=== PATIENT | male | born 1950 | race Caucasian/White ===

== ENCOUNTER 2021-03-26 09:43 | Emergency (ER) | payer MEDICARE, BC ==
[2021-03-26] MEDS ORDERED: ASPIRIN CHEW 81 MG TABLET PO STA (09:59)
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
[2021-03-26 10:06] LABS: BASOPHILS % (AUTO) 0.6 %; EOSINOPHILS % (AUTO) 0.8 %; HCT - HEMATOCRIT 41.3 % (42.0-52.0); HGB - HEMOGLOBIN 13.5 g/dL (14.0-18.0); LYMPHOCYTES # (AUTO) 1.7 10^3/uL (1.5-3.5); LYMPHOCYTES % (AUTO) 35.8 %; MEAN CORPUSCULAR HEMOGLOBIN 31.9 pg (27.0-31.0); MEAN CORPUSCULAR HGB CONC 32.7 g/dL (32.0-36.0); MEAN CORPUSCULAR VOLUME 97.6 fL (80.0-94.0); MEAN PLATELET VOLUME 10.6 fL (7.4-11.4); MONOCYTES # (AUTO) 0.4 10^3/uL (0.0-1.0); MONOCYTES % (AUTO) 8.5 %; NEUTROPHILS # (AUTO) 2.6 10^3/uL (1.5-6.6); NEUTROPHILS % (AUTO) 54.1 %; PLT - PLATELET COUNT 178 10^3/uL (130-450); RED BLOOD COUNT 4.23 10^6/uL (4.70-6.10); RED CELL DISTRIBUTION WIDTH 12.5 % (12.0-15.0); WHITE BLOOD COUNT 4.8 x10^3/uL (4.8-10.8)
[2021-03-26 10:23] LABS: ALBUMIN 4.4 g/dL (3.2-5.5); ALBUMIN/GLOBULIN RATIO 1.5 (1.0-2.2); BILIRUBIN,TOTAL 0.7 mg/dL (0.2-1.0); CALCIUM 9.4 mg/dL (8.5-10.3); CREATININE 0.9 mg/dL (0.6-1.2); POTASSIUM 3.7 mmol/L (3.5-5.0); TOTAL PROTEIN 7.3 g/dL (6.7-8.2)
--- NOTE | 2021-03-26 11:17 | XRAY Report ---
PROCEDURE: Chest 1 View X-Ray INDICATIONS: Chest Pain COMMENTS: SX X 2 DAYS. CENTER CHEST PAIN. PRIORS: NONE TECHNIQUE: One view of the chest was acquired. COMPARISON: None FINDINGS: Surgical changes and devices: Status post median sternotomy Lungs and pleura: No pleural effusions or pneumothorax. Lungs are clear. Mediastinum: Mediastinal contours appear normal. Heart size is normal. Bones and chest wall: No suspicious bony lesions. Overlying soft tissues appear unremarkable. IMPRESSION: No acute cardiopulmonary abnormality. Reviewed by: Dirk Caldera on 03/26/2021 10:15 AM [facility] Approved by: Dirk Caldera on 03/26/2021 10:15 AM [facility] Station ID: [id number]
[2021-03-26 13:09] VITALS: BP 128/84
== END 2021-03-26 13:14 | disposition home or self-care (01) ==
LOC: ED 09:43
DX: R07.2 Precordial pain (principal); R94.31 Abnormal electrocardiogram [ECG] [EKG]; Z95.1 Presence of aortocoronary bypass graft; Z79.82 Long term (current) use of aspirin
CPT/HCPCS: 36415; 71045; 80053; 83690; 84484; 85025; 93005; 99282; 99284; A9270

== ENCOUNTER 2021-08-22 18:40 | Outpatient (CLI) | payer MEDICARE, BC | END 2021-08-22 23:59 | disposition home or self-care (01) | LOC: LAB 18:40 | PROVIDERS: ATTEND Physician Assistant Medical | DX: J02.9 Acute pharyngitis, unspecified (principal); Z20.822 Contact with and (suspected) exposure to COVID-19 | CPT/HCPCS: 87070; U0004 ==

== ENCOUNTER 2021-10-20 08:36 | Outpatient (CLI) | payer MEDICARE, BC ==
[2021-10-20 15:49] LABS: ALBUMIN 4.1 g/dL (3.2-5.5); ALKALINE PHOSPHATASE 40 IU/L (42-121); ALT ALANINE AMINOTRANSFERASE 22 IU/L (10-60); AST ASPARTATE AMINOTRANSFERASE 22 IU/L (10-42); BILIRUBIN,DIRECT 0.1 mg/dL (0.1-0.5); BILIRUBIN,TOTAL 0.9 mg/dL (0.2-1.0); CHOL/HDL RATIO 1.9 (<5.0); CHOLESTEROL 100 mg/dL; HDL CHOLESTEROL 52 mg/dL; TOTAL PROTEIN 6.9 g/dL (6.7-8.2); TRIGLYCERIDES 34 mg/dL
== END 2021-10-20 08:37 | disposition home or self-care (01) ==
LOC: LAB.S 08:36
PROVIDERS: ATTEND Internal Medicine Cardiovascular Disease
DX: I25.10 Atherosclerotic heart disease of native coronary artery without angina pectoris (principal); E78.5 Hyperlipidemia, unspecified
CPT/HCPCS: 36415; 80061; 80076; 83721

== ENCOUNTER 2021-11-03 08:43 | Outpatient (CLI) | payer MEDICARE, BC | END 2021-11-03 08:44 | disposition home or self-care (01) | LOC: LAB 08:43 | PROVIDERS: ATTEND Internal Medicine Cardiovascular Disease | DX: I25.10 Atherosclerotic heart disease of native coronary artery without angina pectoris (principal); E78.5 Hyperlipidemia, unspecified | CPT/HCPCS: 36415; 83721 ==

== ENCOUNTER 2022-11-26 15:04 | Emergency (ER) | payer MEDICARE, BC ==
[2022-11-26 15:37] LABS: BASOPHILS % (AUTO) 0.5 %; EOSINOPHILS % (AUTO) 0.7 %; HCT - HEMATOCRIT 40.5 % (42.0-52.0); HGB - HEMOGLOBIN 12.9 g/dL (14.0-18.0); LYMPHOCYTES # (AUTO) 1.4 10^3/uL (1.5-3.5); LYMPHOCYTES % (AUTO) 33.6 %; MEAN CORPUSCULAR HEMOGLOBIN 31.3 pg (27.0-31.0); MEAN CORPUSCULAR HGB CONC 31.9 g/dL (32.0-36.0); MEAN CORPUSCULAR VOLUME 98.3 fL (80.0-94.0); MONOCYTES # (AUTO) 0.4 10^3/uL (0.0-1.0); MONOCYTES % (AUTO) 8.2 %; NEUTROPHILS # (AUTO) 2.4 10^3/uL (1.5-6.6); NEUTROPHILS % (AUTO) 56.8 %; PLT - PLATELET COUNT 172 10^3/uL (130-450); RED BLOOD COUNT 4.12 10^6/uL (4.70-6.10); WHITE BLOOD COUNT 4.3 x10^3/uL (4.8-10.8)
[2022-11-26 15:51] LABS: ALBUMIN 4.4 g/dL (3.2-5.5)
[2022-11-26 15:57] LABS: TROPONIN I HIGH SENSITIVITY 3.1 ng/L (2.3-19.7)
[2022-11-26 15:58] LABS: ALBUMIN/GLOBULIN RATIO 1.9 (1.0-2.2); BILIRUBIN,TOTAL 0.3 mg/dL (0.2-1.0); CALCIUM 9.2 mg/dL (8.5-10.3); CREATININE 0.9 mg/dL (0.6-1.3); POTASSIUM 3.9 mmol/L (3.5-4.5); TOTAL PROTEIN 6.7 g/dL (6.4-8.9)
--- NOTE | 2022-11-26 16:20 | XRAY Report ---
PROCEDURE: Chest 1 View X-Ray INDICATIONS: Chest pain TECHNIQUE: One view of the chest was acquired. COMPARISON: 03/26/2021. FINDINGS: Surgical changes and devices: Median sternotomy wires and surgical clips are seen. Lungs and pleura: No pleural effusions or pneumothorax. Lungs are clear. Mediastinum: Mildly tortuous thoracic aorta. Heart size is normal. Bones and chest wall: No suspicious bony lesions. Overlying soft tissues appear unremarkable. IMPRESSION: No acute cardiopulmonary process. Reviewed by: Darinel Whitney MD on 11/26/2022 4:18 PM PDT Approved by: Darinel Whitney MD on 11/26/2022 4:18 PM PDT Station ID: [id number]
[2022-11-26 17:48] VITALS: O2SAT 100
--- NOTE | 2022-11-26 17:57 | ED Physician Documentation ---
PD HPI CHEST PAIN - Stated complaint Stated Complaint: CHEST/NECK/BACK PX,DIZZINESS,SOA - Chief complaint Chief Complaint: Cardiac - History obtained from History obtained from: Patient - Additional information Additional information: 72-year-old gentleman with history of coronary disease. Two-vessel bypass in 2016 followed by Edis Gonzalez, cardiology at [facility]. Last stress 3 years ago and negative per him. For the last 2 weeks he has had intermittent chest tightness radiating to both shoulders and the posterior neck. It is worse at rest and while sitting at his desk. It is actually better with exertion. He is not short of breath with it. He climbed a hill the other day and said it made him feel better. He denies pedal edema or calf pain. PD PAST MEDICAL HISTORY - Past Medical History Cardiovascular: High cholesterol, Coronary artery disease Respiratory: None Neuro: None Endocrine/Autoimmune: None GI: GERD : None HEENT: None Psych: None Musculoskeletal: None Derm: None - Past Surgical History Past Surgical History: Yes General: Other Cardiovascular: CABG - Present Medications Home Medications: Ambulatory Orders Medication Instructions Recorded Confirmed Aspirin [Aspirin EC] 2 tablet PO DAILY PM 03/26/21 03/26/21 Evolocumab [Repatha Sureclick] 140 mg SQ PRN 03/26/21 03/26/21 Ezetimibe [Zetia] 10 mg PO DAILY 03/26/21 03/26/21 Omeprazole Magnesium [Prilosec] 10 mg PO DAILY 03/26/21 03/26/21 - Allergies Allergies/Adverse Reactions: Allergies Allergy/AdvReac Type Severity Reaction Status Date / Time No Known Drug Allergies Allergy Verified 03/26/21 09:54 - Social History Does the pt smoke?: No Smoking Status: Never smoker Does the pt drink ETOH?: No Does the pt have substance abuse?: No - Immunizations Immunizations are current?: Yes - POLST Patient has POLST: No PD ED PE NORMAL - Vitals Vital signs reviewed: Yes - General General: Alert and oriented X 3, No acute distress - HEENT HEENT: PERRL, EOMI - Neck Neck: Supple, no meningeal sign, No bony TTP - Cardiac Cardiac: RRR, No murmur - Respiratory Respiratory: No respiratory distress, Clear bilaterally - Abdomen Abdomen: Non tender - Neuro Neuro: Alert and oriented X 3, Normal speech - Psych Psych: Normal mood, Normal affect Results - Vitals Vitals: Vital Signs - 24 hr 11/26/22 11/26/22 15:18 17:44 Temperature 36.6 C Heart Rate 73 66 Respiratory 16 16 Rate Blood Pressure 143/83 H 132/87 H O2 Saturation 99 100 Oxygen O2 Source Room air - EKG (time done) 1521 EKG releavant findings:: EKG personally interpreted by author of this note. Relevant findings are: Rate: Rate (enter#) (64) Rhythm: NSR [place]: Normal Intervals: Normal NE QRS: Normal, LVH Ischemia: Normal ST segments - Labs Labs: Laboratory Tests 11/26/22 11/26/22 15:32 15:32 WBC 4.3 L RBC 4.12 L Hgb 12.9 L Hct 40.5 L MCV 98.3 H MCH 31.3 H MCHC 31.9 L RDW 13.0 Plt Count 172 MPV 11.0 Neut # (Auto) 2.4 Lymph # (Auto) 1.4 L [place] # (Auto) 0.4 Eos # (Auto) 0.0 Baso # (Auto) 0.0 Absolute Nucleated RBC 0.00 Nucleated RBC % 0.0 Sodium 140 Potassium 3.9 Chloride 105 Carbon Dioxide 31 Anion Gap 4.0 L BUN 16 Creatinine 0.9 Estimated GFR (MDRD) 83 L Glucose 97 Calcium 9.2 Total Bilirubin 0.3 AST 22 ALT 18 Alkaline Phosphatase 47 Troponin I High Sens 3.1 Total Protein 6.7 Albumin 4.4 Globulin 2.3 Albumin/Globulin Ratio 1.9 Lipase 35 - Rads (name of study) cxr nad Relevant Findings:: Final report received, EMP independent interpretation of test PD Medical Decision Making - ED course ED course: 72-year-old gentleman with known coronary disease presents with intermittent chest pain, reassuring that its worse at rest and better with exertion. He has a nonischemic EKG and a normal chest x-ray with negative troponin. Given his high risk though, I will reach out to his card player, suspect they will want him rapidly followed up with stress. 72-year-old gentleman with known coronary disease presents with nonexertional, in fact "antiexertional" chest pain for the last 2 weeks. EKG nonischemic, biomarkers negative, chest x-ray normal. I spoke with Dr. Dooley, on-call for his card player Dr. Gonzalez who agrees he can be discharged and should follow-up in the office for stress. Departure - Departure Disposition: 01 Home, Self Care Clinical Impression: Chest pain Qualifiers: Chest pain type: unspecified Qualified Code(s): R07.9 - Chest pain, unspecified Condition: Good Record reviewed to determine appropriate education?: Yes Instructions: ED Chest Pain Atypical Unkn Cause Comments: Today I discussed her case with Dr. oDoley who is [address] Gonzalez's partners. He agrees he can be safely discharged but you should call Dr. Gonzalez's office tomorrow for rapid follow-up for a stress test. Return for new or worsening symptoms. Continue current medications.
[2022-11-26 18:49] VITALS: BP 133/84
== END 2022-11-26 18:45 | disposition home or self-care (01) ==
LOC: ED 15:04
DX: R07.9 Chest pain, unspecified (principal)
CPT/HCPCS: 36415; 80053; 83690; 84484; 85025; 93005; 99283; 99284